=== PATIENT | male | born 1980 | race African-American/Black ===

== ENCOUNTER 2022-01-29 19:43 | Emergency (ER) | payer SELFPAY ==
[~2022-01-29] VITALS: Ht 177.8 cm; Wt 113.6 kg
--- NOTE | 2022-01-29 20:05 | PHYS DOC ---
General Adult EDM: Chief Complaint: CHEST PAIN HPI: HPI: History obtained from patient and EMS. Patient is a 41-year-old male with past medical history as noted for schizophrenia, axm-ybswdeu-mthujnkjj diabetes, hypertension, alcohol abuse who presents with chief complaint of chest pain and depressive thoughts. He notes that he developed chest pain approximately 14 hours prior to arrival. He states it occurred while drinking beer. Notes lasted 45 minutes and resolve spontaneously. He states he did call EMS approximately 30 minutes prior to arrival due to depressive thoughts. He states he is out of his antihypertensive and diabetic medication. He is unsure of the name of these medicines. States he last took these 1 month ago. States he does have a [id number]-[id number] sensation in the bottom of his feet bilaterally. He states he has constant intrusive depressive thoughts. Denies any azra plan for suicidal ideation. Notes that he drinks approximately 4 beers and 1 pint of gail per day. Does express desire for help with alcohol withdrawal. Does no te marijuana use. Denies any other drug use. Denies any auditory or visual hallucinations at this time. Review of Systems: Review of Systems: Constitutional: Denies fever or chills. [] Eyes: Denies change in visual acuity. [] HENT: Denies nasal congestion or sore throat. [] Respiratory: Denies cough or shortness of breath. [] Cardiovascular: Positive for chest pain GI: Denies abdominal pain, nausea, vomiting, bloody stools or diarrhea. [] : Denies dysuria. [] Musculoskeletal: Denies back pain or joint pain. [] Integument: Denies rash. [] Neurologic: Denies headache, focal weakness or sensory changes. [] Endocrine: Denies polyuria or polydipsia. [] Lymphatic: Denies swollen glands. [] Psychiatric: Positive for depression and alcohol abuse Heart Score: C/O Chest Pain: Yes Risk Factors: Risk Factors: DM, Current or recent (<one month) smoker, HTN, HLP, family history of CAD, obesity. Risk Scores: Score 0 - 3: 2.5% MACE over next 6 weeks - Discharge Home Score 4 - 6: 20.3% MACE over next 6 weeks - Admit for Clinical Observation Score 7 - 10: 72.7% MACE over next 6 weeks - Early Invasive Strategies Physical Exam: PE: Constitutional: Well developed, well nourished, no acute distress, non-toxic appearance. [] HENT: Normocephalic, atraumatic, bilateral external ears normal, oropharynx m oist, no oral exudates, nose normal. [] Eyes: PERRLA, EOMI, conjunctiva normal, no discharge. [] Neck: Normal range of motion, no tenderness, supple, no stridor. [] Cardiovascular:Heart rate regular rhythm, no murmur [] Lungs & Thorax: Bilateral breath sounds clear to auscultation [] Abdomen: Bowel sounds normal, soft, no tenderness, no masses, no pulsatile masses. [] Skin: Warm, dry, no erythema, no rash. [] Back: No tenderness, no CVA tenderness. [] Extremities: No tenderness, no cyanosis, no clubbing, ROM intact, no edema. [] Neurologic: Alert and oriented X 3, normal motor function, normal sensory function, no focal deficits noted. [] Psychologic: Affect normal, judgement normal, mood normal. [] EKG: EKG: [] EKG consistent with sinus rhythm. Ventricular rate of 93 bpm. Left axis deviation noted no acute ST elevation appreciated. Left anterior fascicular block present. Radiology/Procedures: Radiology/Procedures: [] Course & Med Decision Making: Course & Med Decision Making Pertinent Labs and Imaging studies reviewed. (See chart for details) [] Dragon Disclaimer: Dragericka Disclaimer: This electronic medical record was generated, in whole or in part, using a voice recognition dictation system. MARIA R FIERRO DO Jan 29, 2022 20:05
[2022-01-29 20:24] LABS: BASO # 0.1 x10^3/uL (0.0-0.2); BASO % 1 % (0-3); EOS # 0.1 x10^3/uL (0.0-0.7); EOS % 1 % (0-3); HEMATOCRIT 43.5 % (39.0-53.0); HEMOGLOBIN 14.4 g/dL (13.0-17.5); LYMPH # 3.3 x10^3/uL (1.0-4.8); LYMPH % 36 % (24-48); MEAN CORPUSCULAR HEMOGLOBIN 30 pg (25-35); MEAN CORPUSCULAR HGB CONC 33 g/dL (31-37); MEAN CORPUSCULAR VOLUME 90 fL (79-100); MONO # 0.4 x10^3/uL (0.0-1.1); MONO % 5 % (0-9); NEUT # 5.4 x10^3/uL (1.8-7.7); NEUT % 58 % (31-73); PLATELET COUNT 313 x10^3/uL (140-400); RED BLOOD COUNT 4.85 x10^6/uL (4.30-5.70); RED CELL DISTRIBUTION WIDTH 15.2 % (11.5-14.5); WHITE BLOOD COUNT 9.3 x10^3/uL (4.0-11.0)
--- NOTE | 2022-01-29 20:33 | RAD ---
EXAMINATION: Chest radiograph. VIEWS: 1 COMPARISON: None INDICATION:41 years, Male, chest pain. FINDINGS: Normal cardiomediastinal silhouette. No focal consolidation. No pleural effusion or pneumothorax. No acute osseous process. IMPRESSION: No acute cardiopulmonary process. Electronically signed by: Raquel Mayen MD (01/29/2022 8:31 PM) [facility]
[2022-01-29 20:34] LABS: CALCIUM 9.2 mg/dL (8.5-10.1); CREATININE 0.8 mg/dL (0.7-1.3); GFR 105.5; POTASSIUM 3.6 mmol/L (3.5-5.1)
[2022-01-29 20:36] LABS: SALIC 2.6 mg/dL (2.8-20.0)
[2022-01-29 20:37] LABS: ACETAMIN < 2 mcg/ml (10-30); ETHANOL 262 mg/dL (0-10)
[2022-01-29 20:39] LABS: ALBUMIN 4.2 g/dL (3.4-5.0); ALBUMIN/GLOBULIN RATIO 1.1 (1.0-1.7); TOTAL BILIRUBIN 0.4 mg/dL (0.2-1.0); TOTAL PROTEIN 8.2 g/dL (6.4-8.2)
[2022-01-29 21:54] LABS: AMPHETAMINE/METHAMPHETAMINE NEG (NEG); BARBITURATES NEG (NEG); BENZODIAZEPINES NEG (NEG); CANNABINOIDS NEG (NEG); COCAINE NEG (NEG); METHADONE NEG (NEG); OPIATES NEG (NEG); PHENCYCLIDINE NEG (NEG)
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
[2022-01-29] MEDS: FAMOTIDINE 20 MG TABLET. PO ONE (22:52)
[2022-01-29] MEDS: ONDANSETRON ODT 4 MG TAB.RAPDIS. PO ONE (22:52)
[2022-01-29] MEDS: ACETAMINOPHEN 500 MG TABLET PO ONE (22:53)
--- NOTE | 2022-01-30 04:19 | EKG ---
[facility] [address] [place] [address] Test Date: 2022-01-29 Test Time: 19:56:07 Pat Name: VERNELL FLORES Department: Room: Gender: M [employer]: : 1980 Requested By: LIDIA GOMEZ Order Number: [id number] Reading MD: Adan Trinh MD Measurements Intervals [place] Rate: 93 P: 43 DC: 138 QRS: -40 QRSD: 98 T: 51 QT: 360 QTc: 450 Interpretive Statements SINUS RHYTHM Electronically Signed On 01-31-2022 6:55:45 CDT by Adan Trinh MD
[2022-01-30 06:00] VITALS: BP 152/84
== END 2022-01-30 07:20 | disposition home or self-care (01) ==
LOC: EDBD 19:43 → ER 19:43
DX: F10.20 Alcohol dependence, uncomplicated (principal); Y90.7 Blood alcohol level of 200-239 mg/100 ml; Z20.822 Contact with and (suspected) exposure to COVID-19; R07.89 Other chest pain; F20.9 Schizophrenia, unspecified; E11.9 Type 2 diabetes mellitus without complications; I10 Essential (primary) hypertension
CPT/HCPCS: 36415; 71045; 80053; 80307; 80329; 83690; 84484; 85025; 87426; 93005; 99285; G0480; U0003